=== PATIENT | male | born 1985 | race Caucasian/White ===

== ENCOUNTER 2017-07-07 19:07 | Inpatient (IN) | payer OTHER, BC ==
[~2017-07-07] VITALS: Ht 180.3 cm; Wt 92.0 kg
[2017-07-07] MEDS ORDERED: SODIUM CHLORIDE 0.9% 1000ML 1,000 ML IV STA (19:21)
[2017-07-07] MEDS ORDERED: FENTANYL CITRATE INJ 50 MCG/1 ML 2 ML VIAL IV STA ×2 (19:21→20:22)
[2017-07-07] MEDS ORDERED: OPTIRAY 320 IV PRN (19:30)
[2017-07-07] MEDS ORDERED: CEFAZOLIN SOD 1000MG/7.5 ML IV PUSH IV STA (19:39)
[2017-07-07] MEDS ORDERED: DIPHTHERIA/TETANUS/PERTUSSIS 0.5 ML SYR/VIAL IM. ONE (19:45)
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
[2017-07-07 20:17] LABS: BASO % 0.1 %; BASO ABS # 0.02 K/uL (0-0.2); EOS % 1.1 %; EOS ABS # 0.16 K/uL (0-0.5); HEMOGLOBIN 12.7 g/dL (14.0-18.0); IG# 0.04 K/uL (0.00-0.02); LYMPH % 7.8 %; LYMPH ABS # 1.09 K/uL (1.2-3.4); MEAN CELL VOLUME 87.6 fL (80-100); MEAN CORPUSCULAR HEMOGLOBIN 30.9 pg (25-34); MEAN CORPUSCULAR HGB CONC 35.3 g/dl (32-36); MEAN PLATELET VOLUME 10.2 fL (7.4-10.4); MONO % 8.6 %; NEUT % 82.1 %; PLATELET COUNT 190 K/uL (130-400); RED CELL DISTRIBUTION WIDTH CV 12.4 % (11.5-14.5); RED CELL DISTRIBUTION WIDTH SD 39.9 fL (36.4-46.3); WHITE BLOOD COUNT 14.01 K/uL (4.8-10.8)
[2017-07-07 20:24] LABS: ISTAT IONIZED CALCIUM 1.18 mmol/l (1.12-1.32); ISTAT POTASSIUM 3.6 mEq/L (3.3-5.0)
[2017-07-07 20:28] LABS: PTT PATIENT 24.4 SECONDS (21.0-31.0)
--- NOTE | 2017-07-07 20:33 | EMERGENCY ROOM VISIT NOTE ---
ED Visit Note First contact with patient: 19:08 This Patient was discussed with the nurse practitioner, Luisa Ariza. The pertinent historical and physical exam findings were confirmed. I agree with the studies ordered and with the interpretations of these studies. I agree with the disposition and care plan.
[2017-07-07 20:36] LABS: ALBUMIN 3.8 gm/dl (3.4-5.0); ALT/SGPT 31 U/L (12-78); AST/SGOT 30 U/L (15-37); BLOOD UREA NITROGEN 18 mg/dl (7-18); CALCIUM 8.9 mg/dl (8.5-10.1); CARBON DIOXIDE 25 mmol/L (21-32); CREATININE 1.23 mg/dl (0.60-1.40); GLUCOSE 100 mg/dl (70-99); LIPASE 122 U/L (73-393); POTASSIUM 3.6 mmol/L (3.5-5.1); SODIUM 139 mmol/L (136-145)
[2017-07-07 20:44] LABS: ALKALINE PHOSPHATASE 98 U/L (45-117); TOTAL PROTEIN 7.5 gm/dl (6.4-8.2)
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
[2017-07-07] MEDS ORDERED: HYDROmorphone INJ 1 MG/ML SYR ONE (20:52)
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
[2017-07-07] MEDS ORDERED: HYDROmorphone INJ 1 MG/ML SYR IV STA (20:53)
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
[2017-07-07] MEDS ORDERED: OXYCODONE HCL IR 5 MG TAB (IMMEDIATE RELEASE) PO STA (21:25)
[2017-07-07] MEDS ORDERED: PROPOFOL IV EMULSION 10 MG/ML 20 ML VIAL ONE (22:42)
[2017-07-07] MEDS ORDERED: LIDOCAINE HCL 2% 2 ML VIAL (20MG/ML) ONE (22:42)
[2017-07-07] MEDS ORDERED: FENTANYL CITRATE INJ 50 MCG/1 ML 2 ML VIAL ONE (22:43)
[2017-07-07] MEDS ORDERED: MIDAZOLAM HCL 1 MG/ML 2ML VIAL ONE (22:43)
[2017-07-07] MEDS ORDERED: BACITRACIN 50000 UNIT VIAL ONE (22:52)
[2017-07-07] MEDS ORDERED: EpHEDrine SULFATE INJ 50 MG/ML AMP IV PRN (23:00)
[2017-07-07] MEDS ORDERED: FENTANYL CITRATE INJ 50 MCG/1 ML 2 ML VIAL IV PRN (23:00)
[2017-07-07] MEDS ORDERED: ONDANSETRON INJ 2 MG/ML 2 ML VIAL IV PRN (23:00)
[2017-07-07] MEDS ORDERED: HYDROmorphone INJ 1 MG/ML SYR IV PRN (23:00)
[2017-07-07] MEDS ORDERED: ATROPINE SULFATE 0.1 MG/ML 5ML SYR IV PRN (23:00)
[2017-07-07] MEDS ORDERED: PROMETHAZINE HCL INJ 12.5 MG in SODIUM CHLORIDE 0.9% 50ML 50 ML IV PRN (23:00)
[2017-07-07] MEDS ORDERED: PHENYLEPHRINE 100MCG/ML 5ML SYR IV PRN (23:00)
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
[2017-07-07] MEDS ORDERED: CEFAZOLIN SOD 1 GM VIAL ONE ×2 (23:56)
[2017-07-07] MEDS ORDERED: HYDROmorphone INJ 2 MG/ML SYR/VIAL ONE (23:59)
[2017-07-08] VITALS (12 sets, daily range): BP systolic 135–150; BP diastolic 79–97; PULSE 73–97; TEMP 36.6–37.3; O2SAT 96–100; Ht 180.3 cm; Wt 92.0 kg
[2017-07-08] MEDS ORDERED: SUCCINYLCHOLINE 100MG/5ML SYR IV ONE (00:28)
[2017-07-08] MEDS ORDERED: ONDANSETRON INJ 2 MG/ML 2 ML VIAL ONE (00:28)
[2017-07-08] MEDS ORDERED: PROPOFOL IV EMULSION 10 MG/ML 20 ML VIAL ONE (00:30)
[2017-07-08] MEDS ORDERED: BUPIVACAINE 0.25% 30 ML VIAL ONE (00:38)
--- NOTE | 2017-07-08 00:57 | [facility] Post Operative Brief Note ---
Immediate Operative Summary Operative Date July 08, 2017. Pre-Operative Diagnosis Open right comminuted calcaneous fracture Post-Operative Diagnosis Open right comminuted calcaneous fracture Procedure(s) Performed Irrigation and debridement right foot medial heel wounds, splint application Surgeon Dr. Hensley Bilingual Medical Assistant Surgeon(s) none Estimated Blood Loss 50 Findings Consistent with Post-Op Diagnosis Fluids (cc crystalloids) 700 Specimens none Drains None Anesthesia Type General Complication(s) none Disposition Disposition: Recovery Room / PACU Overlapping Procedure I was present for: the critical portions of procedure. I was immediately available: during the entire case
[2017-07-08] MEDS ORDERED: NO NSAIDS SCH (01:15)
[2017-07-08] MEDS ORDERED: ONDANSETRON INJ 2 MG/ML 2 ML VIAL IV PRN (01:15)
[2017-07-08] MEDS ORDERED: CEFAZOLIN IV 2,000 MG in DEXTROSE 5% 50ML 50 ML IV SCH (01:15)
--- NOTE | 2017-07-08 01:31 | Anesthesiology Progress Note ---
Anesthesia Post Op Note Date & Time July 08, 2017 at 01:30 Vital Signs Pain Intensity: 0 Vital Signs Past 12 Hours Date Time Temp Pulse Resp B/P (MAP) Pulse Ox O2 Delivery O2 Flow Rate FiO2 07/08/17 01:20 36.3 79 18 137/83 99 Room Air 07/08/17 01:10 77 18 128/80 100 Oxymask 2 07/08/17 01:00 36.4 75 18 121/86 100 Oxymask 2 07/07/17 23:05 72 140/88 98 07/07/17 20:57 83 133/79 100 Room Air 07/07/17 20:51 86 133/79 100 Room Air 07/07/17 19:22 100 Room Air 07/07/17 19:13 36.7 72 136/80 100 Room Air Notes Mental Status: alert / awake / arousable, participated in evaluation Pt Amnestic to Procedure: Yes Nausea / Vomiting: adequately controlled Pain: adequately controlled Airway Patency, RR, SpO2: stable & adequate BP & HR: stable & adequate Hydration State: stable & adequate Anesthetic Complications: no major complications apparent
--- NOTE | 2017-07-08 01:56 | Orthopedic Progress Note ---
Orthopedic Progress Note Date of Service July 08, 2017. Subjective Additional Notes: Post operative progress note Patient seen in PACU, comfortable, c/o pain, controlled with IV medication, denies N/C/F/C/SOB/CP. No acute issues. Objective AOX3, NAD RLE NVSI +EHL/FHL, SILT grossly, CR< 2 seconds, foot compartments soft NT, bulky splint intact Date Time Temp Pulse Resp B/P (MAP) Pulse Ox O2 Delivery O2 Flow Rate FiO2 07/08/17 01:40 85 18 132/97 100 Room Air 07/08/17 01:30 72 16 131/84 98 Room Air 07/08/17 01:20 36.3 79 18 137/83 99 Room Air 07/08/17 01:10 77 18 128/80 100 Oxymask 2 07/08/17 01:00 36.4 75 18 121/86 100 Oxymask 2 07/07/17 23:05 72 140/88 98 07/07/17 20:57 83 133/79 100 Room Air 07/07/17 20:51 86 133/79 100 Room Air 07/07/17 19:22 100 Room Air 07/07/17 19:13 36.7 72 136/80 100 Room Air Laboratory Results 24 Hours: Test 07/07/17 20:00 White Blood Count 14.01 K/uL Red Blood Count 4.11 M/uL Hemoglobin 12.7 g/dL Hematocrit 36.0 % Mean Corpuscular Volume 87.6 fL Mean Corpuscular Hemoglobin 30.9 pg Mean Corpuscular Hemoglobin Concent 35.3 g/dl Platelet Count 190 K/uL Mean Platelet Volume 10.2 fL Neutrophils (%) (Auto) 82.1 % Lymphocytes (%) (Auto) 7.8 % Monocytes (%) (Auto) 8.6 % Eosinophils (%) (Auto) 1.1 % Basophils (%) (Auto) 0.1 % Neutrophils # (Auto) 11.50 K/uL Lymphocytes # (Auto) 1.09 K/uL Monocytes # (Auto) 1.20 K/uL Eosinophils # (Auto) 0.16 K/uL Basophils # (Auto) 0.02 K/uL Prothromb Time International Ratio 1.0 Prothrombin Time 10.1 SECONDS Assessment & Plan Assessment: s/p I+D Right foot, open comminuted, intra-articular calcaneus fracture Plan: -IV abx x 48 -NWB RLE -Maintain splint -Ice/elevation -PT/OT, crutch training -Pain control -DVT PPX - lovenox q daily -am labs
[2017-07-08] MEDS: POTASSIUM CHLORIDE INJ 10 MEQ in SODIUM CHLORIDE 0.9% 1000ML 1,000 ML IV SCH ×3 (02:18→21:25)
[2017-07-08] MEDS: HYDROmorphone INJ 2 MG/ML SYR/VIAL IV PRN ×6 (02:18→21:26)
[2017-07-08] MEDS ORDERED: IV FLUIDS COMPLETED PRN (02:45)
[2017-07-08] MEDS: ACETAMINOPHEN 500 MG TAB PO SCH ×2 (07:46→15:26)
[2017-07-08] MEDS: CEFAZOLIN IV 2,000 MG in SYRINGE 0 ML IV SCH ×2 (07:46→15:26)
[2017-07-08] MEDS: NICOTINE 14 MG/24 HR TDSY TD SCH ×2 (10:53→19:28)
[2017-07-08] MEDS: PANTOprazole SOD 40 MG TAB PO SCH (10:54)
[2017-07-08] MEDS: MULTIVITAMIN TAB PO SCH (10:55)
[2017-07-08] MEDS: DOCUSATE SODIUM 100 MG CAP PO SCH ×2 (10:55→19:57)
[2017-07-08] MEDS: ENOXAPARIN 40 MG/0.4 ML SYR SQ SCH (10:55)
[2017-07-08] MEDS: OXYCODONE HCL 10 MG TABCR (OXYCONTIN) PO SCH ×2 (10:59→19:56)
[2017-07-08] MEDS: OXYCODONE HCL IR 5 MG TAB (IMMEDIATE RELEASE) PO PRN ×3 (10:59→19:27)
--- NOTE | 2017-07-08 14:16 | Orthopedic Progress Note ---
Orthopedic Progress Note Date of Service July 08, 2017. Subjective Additional Notes: Patient seen laying in bed, foot elevated, reports better control of pain, comfortable and drowsy. Denies N/V/F/C Objective NAD, AOx3 RLE NVSI +EHL/FHL, SILT grossly, foot compartments soft, CR< 2 seconds, bulky splint in place, C/D/I Date Time Temp Pulse Resp B/P (MAP) Pulse Ox O2 Delivery O2 Flow Rate FiO2 07/08/17 11:01 36.8 97 18 148/82 (104) 96 Room Air 07/08/17 07:25 Room Air 07/08/17 07:24 36.9 80 18 138/84 (102) 97 Room Air 07/08/17 04:57 36.7 77 16 146/79 (101) 97 Room Air 07/08/17 03:55 36.8 84 16 150/82 (104) 97 Room Air 07/08/17 02:55 36.7 84 17 149/91 (110) 100 Room Air 07/08/17 02:25 36.6 78 16 146/87 (106) 98 Room Air 07/08/17 01:55 36.7 80 16 137/97 (110) 97 Room Air 07/08/17 01:50 36.7 80 14 137/96 97 Room Air 2.0 07/08/17 01:50 Room Air 07/08/17 01:50 97 Room Air 2.0 07/08/17 01:40 85 18 132/97 100 Room Air 07/08/17 01:30 72 16 131/84 98 Room Air 07/08/17 01:20 36.3 79 18 137/83 99 Room Air 07/08/17 01:10 77 18 128/80 100 Oxymask 2 07/08/17 01:00 36.4 75 18 121/86 100 Oxymask 2 07/07/17 23:05 72 140/88 98 07/07/17 20:57 83 133/79 100 Room Air 07/07/17 20:51 86 133/79 100 Room Air 07/07/17 19:22 100 Room Air 07/07/17 19:13 36.7 72 136/80 100 Room Air Laboratory Results 24 Hours: Test 07/07/17 20:00 White Blood Count 14.01 K/uL Red Blood Count 4.11 M/uL Hemoglobin 12.7 g/dL Hematocrit 36.0 % Mean Corpuscular Volume 87.6 fL Mean Corpuscular Hemoglobin 30.9 pg Mean Corpuscular Hemoglobin Concent 35.3 g/dl Platelet Count 190 K/uL Mean Platelet Volume 10.2 fL Neutrophils (%) (Auto) 82.1 % Lymphocytes (%) (Auto) 7.8 % Monocytes (%) (Auto) 8.6 % Eosinophils (%) (Auto) 1.1 % Basophils (%) (Auto) 0.1 % Neutrophils # (Auto) 11.50 K/uL Lymphocytes # (Auto) 1.09 K/uL Monocytes # (Auto) 1.20 K/uL Eosinophils # (Auto) 0.16 K/uL Basophils # (Auto) 0.02 K/uL Prothromb Time International Ratio 1.0 Prothrombin Time 10.1 SECONDS Assessment & Plan Assessment: -POD#1 s/p I+D right foot, medial heel, open comminuted, intra-articular calcaneus fracture. -Distal fibular fracture -OCD talus Plan: -IV abx x 48 -NWB RLE -Maintain splint -Ice/elevation -PT/OT, crutch training -Pain control -DVT PPX - lovenox q daily x 2 weeks -am labs -DC planning, will need walker for ambulation, 2 weeks DVT ppx, f/u in office for wound/skin check, surgical planning 2 weeks for definitive tx
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
[2017-07-08] MEDS ORDERED: HYDROmorphone INJ 2 MG/ML SYR/VIAL ONE (21:58)
[2017-07-08] MEDS ORDERED: NURSING VERBAL MED ORDER ONE (22:00)
[2017-07-08] MEDS ORDERED: SODIUM CHLORIDE 0.9% 1000ML 1,000 ML IV SCH (22:15)
[2017-07-08] MEDS ORDERED: NALOXONE HCL 0.4 MG/1 ML VIAL/CARP IV PRN (22:15)
[2017-07-08] MEDS: HYDROmorphone INJ 2 MG/ML SYR/VIAL IV SCH ×2 (22:15→22:19)
[2017-07-08] MEDS: HYDROmorphone HCL 0.5MG/ML 50 ML CASSETTE IV PRN ×2 (22:18→23:03)
[2017-07-08] MEDS ORDERED: HYDROmorphone INJ 2 MG/ML SYR/VIAL IV SCH (22:30)
[2017-07-09] VITALS (9 sets, daily range): BP systolic 133–156; BP diastolic 79–92; PULSE 77–89; TEMP 36.7–37.8; O2SAT 96–99
[2017-07-09] MEDS: CEFAZOLIN IV 2,000 MG in SYRINGE 0 ML IV SCH (00:28)
[2017-07-09] MEDS: ACETAMINOPHEN 500 MG TAB PO SCH ×4 (00:28→23:48)
[2017-07-09 06:28] LABS: HEMATOCRIT 30.9 % (42-52); HEMOGLOBIN 10.5 g/dL (14.0-18.0); MEAN CELL VOLUME 89.3 fL (80-100); MEAN CORPUSCULAR HEMOGLOBIN 30.3 pg (25-34); PLATELET COUNT 157 K/uL (130-400); RED CELL DISTRIBUTION WIDTH CV 12.8 % (11.5-14.5); RED CELL DISTRIBUTION WIDTH SD 40.8 fL (36.4-46.3)
[2017-07-09 07:01] LABS: CALCIUM 8.2 mg/dl (8.5-10.1); CREATININE 0.81 mg/dl (0.60-1.40)
[2017-07-09] MEDS: HYDROmorphone HCL 0.5MG/ML 50 ML CASSETTE IV PRN (07:30)
[2017-07-09] MEDS: POTASSIUM CHLORIDE INJ 10 MEQ in SODIUM CHLORIDE 0.9% 1000ML 1,000 ML IV SCH (07:45)
[2017-07-09] MEDS ORDERED: DOCUSATE SODIUM/SENNA 50/8.6MG TAB PO SCH (09:00)
[2017-07-09] MEDS: NICOTINE 14 MG/24 HR TDSY TD SCH (09:00)
[2017-07-09] MEDS ORDERED: DOCUSATE SODIUM 100 MG CAP PO SCH (09:00)
[2017-07-09] MEDS: DOCUSATE SODIUM 100 MG CAP PO SCH ×2 (09:08→20:43)
[2017-07-09] MEDS: MULTIVITAMIN TAB PO SCH (09:08)
[2017-07-09] MEDS: PANTOprazole SOD 40 MG TAB PO SCH (09:08)
[2017-07-09] MEDS: ENOXAPARIN 40 MG/0.4 ML SYR SQ SCH (09:09)
[2017-07-09] MEDS: OXYCODONE HCL 10 MG TABCR (OXYCONTIN) PO SCH (09:10)
[2017-07-09] MEDS ORDERED: ACET-24 PO (12:22)
[2017-07-09] MEDS ORDERED: RXC5 PO (12:22)
[2017-07-09] MEDS ORDERED: OXYSR10 PO (12:22)
--- NOTE | 2017-07-09 12:32 | Discharge Instructions ---
Discharge Instructions Date of Service July 09, 2017. Admission Reason for Admission: Open Calcaneal Fracture Discharge Discharge Diagnosis / Problem: Open Calcaneal Fracture Discharge Goals Goal(s): Decrease discomfort, Improve function Activity Recommendations Activity Limitations: per Instructions/Follow-up section Weightbearing Status: Right non-weightbearing . Instructions / Follow-Up Instructions / Follow-Up Keep splint clean and dry. You must be nonweightbearing on the right foot. Use crutches or a walker for ambulation. Keep the right leg elevated on 1 or 2 pillows when at rest to help decrease swelling. Ice pack to the foot regularly. If showering/bathing, you must keep a waterproof covering over the splint. Follow up with Dr Norris or Oliverio Carrizales PA-C 07/14/17 at 1:30pm for wound check and to plan for fixation of the fracture. Call for appointment. [phone] Current Hospital Diet Patient's current hospital diet: Regular Diet Discharge Diet Recommended Diet: Regular Diet Procedures Procedures Performed: Irrigation and debridement right foot medial heel wounds, splint application Pending Studies Studies pending at discharge: no Medical Emergencies . Who to Call and When: Medical Emergencies: If at any time you feel your situation is an emergency, please call 911 immediately. . Non-Emergent Contact Non-Emergency issues call your: Surgeon Call Non-Emergent contact if: temperature is above 101.5, your pain is not controlled, your pain is worsening, wound has increased drainage, wound has increased redness . "Provider Documentation" section prepared by Rodrigo Giles. . [place] Drug Monitoring Program Search Results: patient reviewed within database, no issues identified
[2017-07-09] MEDS ORDERED: MRPSR15 PO ×2 (13:58→14:02)
[2017-07-09] MEDS ORDERED: LVNIS40 SQ ×2 (13:58→14:02)
[2017-07-09] MEDS ORDERED: DLD/2 PO ×2 (13:58→14:02)
--- NOTE | 2017-07-09 13:58 | Orthopedic Progress Note ---
Orthopedic Progress Note Date of Service July 09, 2017. Subjective Additional Notes: The patient was seen sitting at bedside, comfortable, currently using PSYCHOLOGIST EXPERIMENTAL, pain well controlled. Did have spiking pain last night which prompted the start of PSYCHOLOGIST EXPERIMENTAL medication. Currently denies fevers chills nausea vomiting numbness or tingling as well. Objective NAD, AOx3 RLE NVSI +EHL/FHL, SILT grossly, foot compartments soft, CR< 2 seconds, bulky splint in place, incision was clean dry and intact, no active bleeding, dressing with sanguinous drainage. Date Time Temp Pulse Resp B/P (MAP) Pulse Ox O2 Delivery O2 Flow Rate FiO2 07/09/17 12:45 37.2 88 18 136/79 (98) 96 Room Air 07/09/17 08:13 98 Room Air 07/09/17 07:40 Room Air 07/09/17 07:35 37.2 80 18 140/92 (108) 98 Room Air 07/09/17 02:54 36.8 88 16 155/83 (107) 96 Room Air 2.0 07/09/17 01:15 37.5 88 16 156/80 (105) 96 Room Air 07/09/17 00:15 37.4 89 16 146/91 (109) 97 Room Air 07/08/17 23:50 97 Room Air 2.0 07/08/17 23:15 37.2 81 16 146/84 (104) 97 Room Air 07/08/17 19:25 37.3 73 20 135/80 (98) 98 Room Air 07/08/17 15:20 Room Air 07/08/17 15:10 37.0 82 18 143/80 (101) 97 Room Air Laboratory Results 24 Hours: Test 07/09/17 06:04 Hematocrit 30.9 % Hemoglobin 10.5 g/dL Prothromb Time International Ratio 1.0 Prothrombin Time 10.3 SECONDS Assessment & Plan Assessment: -POD#2 s/p I+D right foot, medial heel, open comminuted, intra-articular calcaneus fracture. -Distal fibular fracture -OCD talus -Intractable pain Plan: -IV abx x 48 -NWB RLE -Maintain splint -Ice/elevation -PT/OT, crutch training -Pain control -patient been experiencing intractable pain on current p.o. pain medication regimen, will discontinue PSYCHOLOGIST EXPERIMENTAL at this time and start new p.o. medication regimen to better control his pain with oral medications. -DVT PPX - lovenox q daily x 2 weeks -am labs - hgb 10.5 -DC planning, will need walker for ambulation, 2 weeks DVT ppx, f/u in office for wound/skin check, surgical planning 2 weeks for definitive tx
[2017-07-09] MEDS ORDERED: MoRPHine SULFATE CR 15 MG TAB (MS CONTIN) PO SCH (14:00)
[2017-07-09] MEDS ORDERED: HYDROmorphone INJ 0.5 MG/0.5 ML SYR IV PRN (14:15)
[2017-07-09] MEDS ORDERED: NURSING VERBAL MED ORDER ONE (14:30)
[2017-07-09] MEDS: HYDROmorphone HCL 2 MG TAB PO PRN ×3 (15:30→23:03)
[2017-07-09] MEDS: MoRPHine SULFATE CR 15 MG TAB (MS CONTIN) PO SCH (20:43)
[2017-07-10] MEDS: HYDROmorphone HCL 2 MG TAB PO PRN ×3 (05:59→14:23)
[2017-07-10 06:16] LABS: HEMOGLOBIN 11.1 g/dL (14.0-18.0); MEAN CELL VOLUME 88.4 fL (80-100); MEAN CORPUSCULAR HEMOGLOBIN 30.7 pg (25-34); MEAN CORPUSCULAR HGB CONC 34.7 g/dl (32-36); MEAN PLATELET VOLUME 10.2 fL (7.4-10.4); PLATELET COUNT 175 K/uL (130-400); RED CELL DISTRIBUTION WIDTH CV 12.4 % (11.5-14.5)
[2017-07-10 06:36] LABS: INR 0.9 (0.9-1.1)
[2017-07-10 06:55] LABS: CALCIUM 9.1 mg/dl (8.5-10.1); CREATININE 0.95 mg/dl (0.60-1.40)
[2017-07-10 07:16] VITALS: BP 139/77; PULSE 74; TEMP 37; O2SAT 97
[2017-07-10] MEDS: MULTIVITAMIN TAB PO SCH (08:39)
[2017-07-10] MEDS: ACETAMINOPHEN 500 MG TAB PO SCH (08:39)
[2017-07-10] MEDS: DOCUSATE SODIUM 100 MG CAP PO SCH (08:39)
[2017-07-10] MEDS: PANTOprazole SOD 40 MG TAB PO SCH (08:39)
[2017-07-10] MEDS: NICOTINE 14 MG/24 HR TDSY TD SCH (08:40)
[2017-07-10] MEDS: MoRPHine SULFATE CR 15 MG TAB (MS CONTIN) PO SCH (08:42)
[2017-07-10] MEDS ORDERED: MAGNESIUM CITRATE 296 ML/BTL PO SCH (09:00)
--- NOTE | 2017-07-10 10:57 | Orthopedic Progress Note ---
Orthopedic Progress Note Date of Service July 10, 2017. Subjective Post OP Day: 3 Reports: feeling well, pain controlled w PO medications, Denies: complaints Objective calves soft nontender, N/V intact, splint C/D/I, A&O x3, toes mobile Date Time Temp Pulse Resp B/P (MAP) Pulse Ox O2 Delivery O2 Flow Rate FiO2 07/10/17 07:30 Room Air 07/10/17 07:16 37.0 74 16 139/77 (97) 97 Room Air 07/09/17 23:40 97 Room Air 2.0 07/09/17 22:49 37.8 86 17 143/85 (104) 97 Room Air 07/09/17 15:25 36.7 77 20 133/89 (104) 99 Room Air 07/09/17 15:00 Room Air 07/09/17 12:45 37.2 88 18 136/79 (98) 96 Room Air Laboratory Results 24 Hours: Test 07/10/17 05:38 Hematocrit 32.0 % Hemoglobin 11.1 g/dL Prothromb Time International Ratio 0.9 Prothrombin Time 9.6 SECONDS Assessment & Plan Assessment: -POD#3 s/p I+D right foot, medial heel, open comminuted, intra-articular calcaneus fracture. -Distal fibular fracture -OCD talus Plan: -IV abx x 48 -NWB RLE -Maintain splint -Ice/elevation -PT/OT, crutch/walker training -Pain controlled -DVT PPX - Pt unable to afford Lovenox/Xarelto. Will plan on ASA 81mg po bid -DC planning, will need walker for ambulation, 2 weeks DVT ppx, f/u in office for wound/skin check, surgical planning 2 weeks for definitive tx
[2017-07-10] MEDS ORDERED: ASPI-320 PO (10:59)
[2017-07-10] MEDS: ENOXAPARIN 40 MG/0.4 ML SYR SQ SCH (11:04)
[2017-07-10 12:18] VITALS: BP 139/77; PULSE 74; TEMP 37; O2SAT 97
--- NOTE | 2017-07-13 07:48 | EDITING REQUIRED CODING QUERY ---
DEBRIDEMENT DOCUMENTATION To promote full compliance with coding requirements relating to patient care, physician participation is requested in all cases of bottoming room inspector uncertainty. Please assist us with the question(s) below: Please place an X in the parenthesis (x). If other, please document the finding: Type of Debridement: ( ) Excisional Debridement- Cutting away necrotic, devitalized tissue or slough to the level of viable tissue using a sharp instrument (i.e. scalpel, scissors, etc.) ( x) Non Excisional Debridement- The removal of necrotic, devitalized tissue or slough by means of scraping, mechanical brushing, flushing, or washing (i.e. irrigation,whirlpool);minor removal of loose fragments. ( ) Other (please specify): Instrument Used: ( ) Scissors (x ) Scalpel (x ) Curette ( ) Other (please specify): Depth of Debridement: ( ) Skin ( x) Skin and Subcutaneous Tissue ( ) Skin, Subcutaneous Tissue and Muscle ( ) Skin, Subcutaneous Tissue, Muscle and Bone ( ) Other (please specify): Please Specify the Size of Debridement in cm2: 3cm2 Thank you Lubna Herzog
--- NOTE | 2017-07-14 11:33 | DISCHARGE SUMMARY ---
DISCHARGE DIAGNOSIS: Open right comminuted calcaneus fracture. CONSULTS: None. COMPLICATIONS: None. PROCEDURES: Irrigation and debridement right foot medial heel wounds with application of splint by Dr. Hensley on 07/08/2017. HISTORY: As dictated in history and physical. HOSPITAL SUMMARY: The patient was admitted on the above date with the above noted fracture, was taken to the operating room and the above noted procedure was performed by Dr. Hensley and the patient was remaining stable. On his first postoperative day, he was seen lying in bed and foot was elevated. He had better pain control, was comfortable and drowsy. Denies nausea or vomiting. He was in no acute distress, alert and oriented x3. Neurovascular is intact. Foot compartments were soft and cap refill is less than 2 seconds. Bulky splint was then placed and was clean, dry, and intact. Vital signs are stable. He was afebrile. Hemoglobin was 12.7. He was started on PT/OT with crutch training or walker training, nonweightbearing right lower extremity. He is going to be continued on IV antibiotics for 48 hours total, continued on pain control and DVT prophylaxis. By his second postoperative day, the patient was seen sitting at the bedside, comfortable, currently using DATA [employer]MER analgesia that had to be started from the previous evening for pain control issues. He denied any fevers, chills, nausea, or vomiting. No numbness or tingling in the foot. He was alert and oriented x3. Neurovascular is intact. Cap refill is less than 2 seconds. The patient's splint was then taken down partially at the foot and ankle where the heel wounds were reviewed. Dressings were removed. The wounds appear benign. He did have swelling, but was not tense and compartments were soft. He then had the wound redressed and the splint was then had further padding placed around it and then was rewrapped with an Kirk wrap. Plans would be for using a walker for ambulation, 2 weeks of DVT prophylaxis, and follow up in the office with Dr. Norris for further preparation for ORIF. By 07/10/2017, he was feeling well, pain was controlled. Calves were soft, nontender. Neurovascularly intact. Splint was clean, dry, and intact. Toes were mobile. Vital signs were stable. He is afebrile. There was some difficulty in getting him approved for [employer] and him being able to pay for it as well. Discussed the case with Dr. Hensley and plans will be to put the patient on aspirin 81 mg p.o. b.i.d. An appointment was made for the patient to follow up with Dr. Norris the following week and he was otherwise remaining stable. He had been off of his DATA PROGRAMMER analgesia and has good pain control and it was felt he be discharged to home. For further review, please see chart. LAB AND X-RAY DATA: As per chart. DISCHARGE INSTRUCTIONS: The patient was discharged home in satisfactory condition on 07/10/2017. DIET: Regular. ACTIVITY: Nonweightbearing in the right lower extremity. INSTRUCTIONS: Keep splint clean and dry. Nonweightbearing, right lower extremity. Use crutches or walker for ambulation. Continue elevation of the right lower extremity on 1 or 2 pillows when at rest, ice pack to the foot regularly. If showering, keep waterproof covering over the splint. Followup with Dr. Norris or Oliverio Carrizales PA-C on 07/14/2017, at 1:30 p.m. for wound check to plan for fixation of the fracture. DISCHARGE MEDICATIONS: Acetaminophen 1000 mg p.o. q. 8 hours for 14 days, aspirin 81 mg p.o. b.i.d. for 14 days, Dilaudid 2 to 4 mg p.o. q. 4 hours p.r.n., morphine sulfate extended release 15 mg p.o. q. 12 hours.
== END 2017-07-10 15:48 | disposition home or self-care (01) | DRG 502 ==
LOC: EDBD 19:07 → C.EDA 19:09 → C.MSN 07-08 01:11 → ENRESERV 07-08 01:33 → OBSVTOIN 07-09 13:59
PROVIDERS: ADMIT Orthopaedic Surgery; ATTEND Orthopaedic Surgery
PROC: 0J9Q0ZZ Drainage of Right Foot Subcutaneous Tissue and Fascia, Open Approach (ICD-10-PCS; principal; 2017-07-07 22:33)
PROC: 0JDQ0ZZ Extraction of Right Foot Subcutaneous Tissue and Fascia, Open Approach (ICD-10-PCS; principal; 2017-07-07 22:33)
DX: S92.061B Displaced intraarticular fracture of right calcaneus, initial encounter for open fracture (principal); R07.9 Chest pain, unspecified; F11.11 Opioid abuse, in remission; F17.200 Nicotine dependence, unspecified, uncomplicated; V47.5XXA Car driver injured in collision with fixed or stationary object in traffic accident, initial encounter; Y93.I9 Activity, other involving external motion; Y99.8 Other external cause status